=== PATIENT | female | born 1975 | race Caucasian/White ===

== ENCOUNTER 2017-04-06 21:28 | Emergency (ER) | payer OTHER ==
[~2017-04-06] VITALS: Ht 157.5 cm; Wt 67.5 kg
[~2017-04-06 21:28] MED LIST: CLARITIN,ALAVAR10 MG PO; ENDOCET 5-3251 EACH PO; FEOSOL325 MG PO; MOTRIN800 MG PO
[2017-04-07] MEDS ORDERED: NORCO 5/3251 TABLET PO (00:18)
[2017-04-07] MEDS ORDERED: VALIUM5 MG PO (00:18)
[2017-04-07] MEDS ORDERED: MEDROL DOSEPAK4 MG PO (00:18)
[2017-04-07 00:29] VITALS: BP 120/75
== END 2017-04-07 00:31 | disposition home or self-care (01) ==
LOC: RME 21:28 → EME 21:28 → RME 04-07 00:31
DX: M54.5 Low back pain (principal)
CPT/HCPCS: 99281; 99283; J7512